=== PATIENT | female | born 2000 | race African-American/Black ===

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

== ENCOUNTER 2019-03-06 10:02 | Emergency (ER) | payer OTHER ==
[~2019-03-06] VITALS: Ht 154.9 cm; Wt 54.4 kg
[~2019-03-06 10:02] MED LIST changes: +CLARITIN-D 121 EAC1 ORAL
[2019-03-06] MEDS ORDERED: NKM (10:11)
[2019-03-06 10:15] VITALS: BP 102/64
--- NOTE | 2019-03-06 10:15 | NUR ---
ED Nurse Note: patient ambulated into the ER with a c/o a headache and sore throat since yesterday. Patient is aox4, on room air with stable vital signs. Patient states a pain score of 10/10.
--- NOTE | 2019-03-06 10:59 | NUR ---
ED Nurse Note: Flu specimen sent to lab.
--- NOTE | 2019-03-06 11:00 | NUR ---
ED Nurse Note: ERMD bedside.
[2019-03-06 11:32] VITALS: BP 101/71
--- NOTE | 2019-03-06 11:36 | Emergency Room Report ---
History of Present Illness General Chief Complaint: Flu Like Symptoms Source: Patient Present Illness HPI 18-year-old female presents with flulike symptoms started yesterday. She reports headache and sore throat. Patient did not take any medications other than NyQuil. She reported mild improvement with it. She has been drinking tea and staying hydrated. She denies any urinary, bowel symptoms. Patient did not get influenza vaccination this year. Allergies: Coded Allergies: No Known Allergies (Unverified , 01/24/15) Patient History Last Menstrual Period: 02/03/2019 Nursing Documentation-[facility] Past Medical History: No Stated History Review of Systems Constitutional: Denies: chills, fever Respiratory: Reports: cough; Denies: shortness of breath Cardiovascular: Denies: chest pain, palpitations Gastrointestinal: Denies: diarrhea, vomiting Genitourinary: Denies: hematuria, pain Musculoskeletal: Denies: joint swelling Skin: Denies: rash, lesions Neurological: Reports: headache, other - Malaise; Denies: dizziness Physical Exam Vital Signs Date Time Temp Pulse Resp B/P (MAP) Pulse Ox O2 Delivery O2 Flow Rate FiO2 03/06/19 10:07 99.9 99 16 102/64 (77) 96 Room Air Sp02 EP Interpretation: reviewed General Appearance: well appearing, no apparent distress, non-toxic Head: normocephalic, atraumatic Eyes: bilateral eye normal inspection ENT: hearing grossly normal, EOM grossly intact, moist mucus membranes Neck: supple Respiratory: lungs clear, normal breath sounds, no respiratory distress, speaking full sentences Cardiovascular #1: regular rate, rhythm, normal capillary refill Cardiovascular #2: 2+ radial (R), 2+ radial (L) Gastrointestinal: soft, no mass, no organomegaly, non-distended Rectal: deferred Musculoskeletal: moves extm spontaneously, no lower extremity edema Neurologic: grossly normal Psychiatric: mood/affect normal Skin: warm/dry, normal turgor Medical Decision Making Diagnostic Impression: Primary Impression: URI (upper respiratory infection) ER Course 18-year-old female presents with flulike symptoms. No signs of fever, distress. Patient has clear lungs to auscultation bilaterally. We will perform influenza testing as patient was not immunized. Microbiology Date/Time Source Procedure Growth Status 03/06/19 10:50 Nasal Nares - Final Complete 03/06/19 10:50 Nasal Nares - Final Complete Lab Results Impression Negative for influenza Last Vital Signs Date Time Temp Pulse Resp B/P (MAP) Pulse Ox O2 Delivery O2 Flow Rate FiO2 03/06/19 11:32 100.0 86 18 101/71 100 Room Air Reevaluation Impression Influenza negative. Patient is stable for outpatient discharge as she has no signs of respiratory distress. Recommended plenty of fluids and to follow-up with primary care doctor or clinic in 2 to 3 days Disposition: HOME, SELF-CARE Condition: Stable Referrals: NON PHYSICIAN (PCP) Departure Forms: Return to School, Return to School On: Mar 08, 2019 School Release Restrictions: None Return to Work Return to Work Date: Mar 08, 2019 Patient Instructions: Upper Respiratory Infection, Adult Additional Instructions: Follow-up with your primary care doctor in 2 to 3 days for reevaluation Yon Ramos M.D. Mar 06, 2019 11:36
[2019-03-06 11:40] VITALS: BP 101/71
--- NOTE | 2019-03-06 11:40 | NUR ---
ER DISCHARGE NOTE: Patient is cleared to be discharged per ERMAnjali Ramos, pt is aox4, on room air, with stable vital signs. pt was given dc instructions, pt was able to verbalize understanding, pt id band removed without complications. pt is able to ambulate with steady gait. pt took all belongings.
== END 2019-03-06 11:40 | disposition home or self-care (01) ==
LOC: EMR 11:12
DX: J06.9 Acute upper respiratory infection, unspecified (principal)
CPT/HCPCS: 86710; Z7502; 99281